=== PATIENT | male | born 1995 | race Two or more races ===

== ENCOUNTER 2017-07-01 13:25 | Emergency (ER) | payer SELFPAY ==
[~2017-07-01] VITALS: Ht 162.6 cm; Wt 59.0 kg
[2017-07-01 13:34] VITALS: BP 112/75
[2017-07-01] MEDS ORDERED: LIDOCAINE 1%-EPI 1:100,000 50 ML VIAL IJ ONE (14:00)
[2017-07-01] MEDS ORDERED: TDAP [DIPH/PERTUSSIS/TET] 0.5 ML VIAL IM ONE ×2 (14:00→14:14)
[2017-07-01] MEDS ORDERED: IBUPROFEN 600 MG TABLET PO ONE ×2 (14:00→14:14)
[2017-07-01] MEDS ORDERED: LIDOCAINE HCL/MPF 1% 30 ML VIAL IJ ONE (14:16)
--- NOTE | 2017-07-01 14:27 | NUR ---
TDAP EXP [id number] EXP 04/20/19 GIVEN IM RIGHT DELTOID
== END 2017-07-01 15:58 | disposition home or self-care (01) ==
LOC: ER 13:31
DX: S61.412A Laceration without foreign body of left hand, initial encounter (principal); F12.90 Cannabis use, unspecified, uncomplicated; F17.200 Nicotine dependence, unspecified, uncomplicated; Z23 Encounter for immunization; W26.8XXA Contact with other sharp object(s), not elsewhere classified, initial encounter; Y93.89 Activity, other specified; Y92.89 Other specified places as the place of occurrence of the external cause; Y99.0 Civilian activity done for income or pay
CPT/HCPCS: 12002; 73130; 90471; 90715; 99284; 99406; A4606; A6402 ×2; A6403; J3490; Z7610